=== PATIENT | female | born 1955 | race Caucasian/White ===

== ENCOUNTER → 2018-03-26 11:09 | Outpatient (CLI) | payer OTHER, SELFPAY ==
[2018-03-26 11:30] LABS: Add Manual Diff / Slide Review NO; Basophils Percent Auto 1.3 % (0-2); Eosinophils Percent Auto 2.9 % (2-4); Hematocrit 42.9 % (36-46); Hemoglobin 14.7 g/dL (12.0-16.0); Lymphocytes Percent Auto 31.2 % (25-40); Mean Corpuscular HGB Conc 34.2 % (30-36); Mean Corpuscular Hemoglobin 29.4 PG (26-34); Mean Corpuscular Volume 86.1 fL (80-100); Monocytes Percent Auto 7.7 % (3-14); Neutrophils Absolute Auto 3700 /uL (3000-5900); Neutrophils Percent Auto 56.9 % (50-75); Platelet Count 290 X10^3/uL (150-400); Red Blood Cell Count 4.99 X10^6/uL (4.0-5.2); White Blood Cell Count 6.4 X10^3/uL (4.5-11.0)
[2018-03-26 11:46] LABS: Hemoglobin A1C% w Est Avg Glu 5.1 % (4.0-6.0)
[2018-03-26 11:47] LABS: Alanine Aminotransferase 24 IU/L (9-52); Albumin 4.5 g/dL (3.5-5.0); Albumin Globulin Ratio 1.4 (1.0-2.8); Alkaline Phosphatase 73 U/L (38-126); Aspartate Aminotransferase 23 IU/L (14-36); BUN Creatinine Ratio 22.5 (6-22); Bilirubin Total 0.6 mg/dL (0.2-1.3); Blood Urea Nitrogen 18 mg/dL (7-17); C-Reactive Protein Quant 0.7 mg/dL (<1.0); Calcium 9.4 mg/dL (8.4-10.2); Carbon Dioxide 31 mmol/L (22-32); Chloride 102 mmol/L (98-107); Cholesterol 205 mg/dL (140-199); Estimated Glomerular Filt Rate > 60.0 mL/min (>60); Globulin 3.2 g/dL (1.7-4.1); Glucose 91 mg/dL (80-110); HDL Cholesterol 49 mg/dL (40-60); HEMOLYSIS < 15 (0-50); LDL Cholesterol Calculated 138 mg/dL (<100); Potassium 4.7 mmol/L (3.4-5.1); Sodium 142 mmol/L (137-145); Total Protein 7.7 g/dL (6.3-8.2); Triglycerides 89 mg/dL (35-150)
[2018-03-26 12:18] LABS: Ferritin 50.2 ng/mL (11.1-264)
[2018-03-26 12:30] LABS: Iron 125 ug/dL (37-170)
[2018-03-26 12:47] LABS: Free T4, Direct Thyroxine 1.35 ng/dL (0.78-2.19)
[2018-03-26 13:01] LABS: Thyroid Stimulating Hormone 0.87 uIU/mL (0.47-4.68)
[2018-03-26 14:57] LABS: Vitamin D 25 Hydroxy (D3) 42.1 ng/mL (30.0-100.0)
== END ==
PROVIDERS: Family Provider Family Medicine; PCP Family Medicine; Visit Provider Naturopath
DX: K21.9 Gastro-esophageal reflux disease without esophagitis (principal); R53.83 Other fatigue; E55.9 Vitamin D deficiency, unspecified
CPT/HCPCS: 36415; 80053; 80061; 82306; 82728; 83036; 83540; 84439; 84443; 84481; 85025; 86140

== ENCOUNTER → 2018-10-05 09:39 | Outpatient (CLI) | payer OTHER, SELFPAY ==
[2018-10-05 11:07] LABS: Add Manual Diff / Slide Review NO; Basophils Absolute Auto 100 /uL (0-100); Eosinophils Absolute Auto 100 /uL (0-450); Eosinophils Percent Auto 1.9 % (2-4); Hematocrit 43.6 % (36-46); Hemoglobin 14.6 g/dL (12.0-16.0); Lymphocytes Absolute Auto 1700 /uL (1100-4500); Lymphocytes Percent Auto 29.3 % (25-40); Mean Corpuscular HGB Conc 33.4 % (30-36); Mean Corpuscular Hemoglobin 29.4 PG (26-34); Mean Corpuscular Volume 87.9 fL (80-100); Monocytes Absolute Auto 400 /uL (0-900); Monocytes Percent Auto 7.6 % (3-14); Neutrophils Absolute Auto 3500 /uL (1500-7000); Neutrophils Percent Auto 60.2 % (50-75); Platelet Count 319 X10^3/uL (150-400); Red Blood Cell Count 4.96 X10^6/uL (4.0-5.2); Red Cell Distribution Width 13.5 % (11.6-14.8); White Blood Cell Count 5.9 X10^3/uL (4.5-11.0)
[2018-10-05 11:30] LABS: Alanine Aminotransferase 23 IU/L (9-52); Albumin 4.6 g/dL (3.5-5.0); Albumin Globulin Ratio 1.5 (1.0-2.8); Alkaline Phosphatase 87 U/L (38-126); Aspartate Aminotransferase 28 IU/L (14-36); BUN Creatinine Ratio 18.8 (6-22); Bilirubin Total 0.4 mg/dL (0.2-1.3); Blood Urea Nitrogen 15 mg/dL (7-17); Calcium 9.5 mg/dL (8.4-10.2); Carbon Dioxide 28 mmol/L (22-32); Chloride 101 mmol/L (98-107); Cholesterol 234 mg/dL (140-199); Estimated Glomerular Filt Rate > 60.0 mL/min (>60); Glucose 85 mg/dL (80-110); HDL Cholesterol 56 mg/dL (40-60); HEMOLYSIS < 15 (0-50); LDL Cholesterol Calculated 157 mg/dL (<100); Potassium 4.8 mmol/L (3.4-5.1); Sodium 140 mmol/L (137-145); Total Protein 7.6 g/dL (6.3-8.2); Triglycerides 106 mg/dL (35-150)
[2018-10-05 11:47] LABS: Vitamin D 25 Hydroxy (D3) 44.4 ng/mL (30.0-100.0)
[2018-10-05 12:01] LABS: Thyroid Stimulating Hormone 1.64 uIU/mL (0.47-4.68)
== END ==
PROVIDERS: PCP Family Medicine; Visit Provider Internal Medicine
DX: E03.9 Hypothyroidism, unspecified (principal); F32.5 Major depressive disorder, single episode, in full remission; E55.9 Vitamin D deficiency, unspecified; Z00.00 Encounter for general adult medical examination without abnormal findings
CPT/HCPCS: 36415; 80053; 80061; 82306; 84443; 85025

== ENCOUNTER → 2018-10-15 15:20 | Outpatient (CLI) | payer OTHER, SELFPAY ==
--- NOTE | 2018-10-15 | DI.RAD.S_ITS ---
PROCEDURE: XR CHEST 2V INDICATIONS: COUGH TECHNIQUE: 2 views of the chest were acquired. COMPARISON: [facility], , CHEST 2 VIEW, 04/28/2017, 10:31. FINDINGS: Surgical changes and devices: None. Lungs and pleura: Lungs are clear. No pleural effusions or pneumothorax. Mediastinum: Mediastinal contours are normal. Heart size is normal. Bones and chest wall: No suspicious bony abnormalities. Soft tissues appear unremarkable. IMPRESSION: No acute disease Dictated by: Yared Johnson M.D. on 10/15/2018 at 16:35 Approved by: Yared Johnson M.D. on 10/15/2018 at 16:35
== END ==
PROVIDERS: PCP Internal Medicine; Visit Provider Internal Medicine
DX: R05 Cough (principal)
CPT/HCPCS: 71046

== ENCOUNTER → 2019-03-03 10:54 | Outpatient (CLI) | payer MEDICARE, OTHER, SELFPAY ==
--- NOTE | 2019-03-03 | DI.CT.S_ITS ---
PROCEDURE: CT SOFT TISSUE NECK W CON INDICATIONS: DYSTONIA, HYPOXIA, NECK MASS TECHNIQUE: After the administration of intravenous contrast, 3.0 mm axial sections acquired from the sella to the aortic arch. Additional oblique axial 3.0 mm sections acquired through the pharynx. 3 mm thick coronal and sagittal reformats were generated. For radiation dose reduction, the following was used: automated exposure control. COMPARISON: None. FINDINGS: Image quality: Excellent. Lymph nodes: No enlarged lymph nodes seen throughout the neck. Vessels: Visualized vasculature appears patent. Neck spaces: The oropharynx, nasopharynx, and pharynx demonstrate no mucosal lesions. The vocal cords, false vocal cords, pyriform sinuses, epiglottis, vallecula, and tongue base all appear normal. Extramucosal spaces appear unremarkable. Glands: The parotid and submandibular glands appear normal. Thyroid gland unremarkable. Miscellaneous: Visualized brain and orbits appear normal. Lung apices appear clear. Superficial soft tissues appear normal. Bones: No suspicious bony lesions. Visualized sinuses and mastoids appear unremarkable. IMPRESSION: No discrete mass identified. No lymphadenopathy seen. Dictated by: Yared Johnson M.D. on 03/03/2019 at 16:45 Approved by: Yared Johnson M.D. on 03/03/2019 at 16:50
--- NOTE | 2019-03-03 | DI.CT.S_ITS ---
PROCEDURE: CT CHEST W CON INDICATIONS: DYSONEA,HYPOXIA,NECK MASS TECHNIQUE: After the administration of intravenous contrast, 5 mm thick sections acquired from the pulmonary apices to the posterior costophrenic angles. 1 mm axial lung, 5 mm thick coronal and sagittal reformats and 7 mm axial MIP were acquired. For radiation dose reduction, the following was used: automated exposure control, adjustment of mA and/or kV according to patient size. COMPARISON: [facility], CT, CT SOFT TISSUE NECK W CON, 03/03/2019, 14:22. FINDINGS: Image quality: Excellent. Lungs and pleura: No acute consolidation. No pleural effusions or pneumothorax. Central and peripheral airways are patent and normal in caliber. Mediastinum: Heart size is normal. No pericardial effusion. No mediastinal or hilar adenopathy by size criteria. Thoracic aorta and central pulmonary arteries are normal in size. Esophagus is normal in caliber. Possible trace hiatal hernia. Bones and chest wall: No suspicious bony lesions. No vertebral body compression fractures. No axillary or supraclavicular adenopathy by size criteria. Incidental cholelithiasis. IMPRESSION: Negative examination. No acute process. No lymphadenopathy identified. Incidental cholelithiasis. Dictated by: Yared Johnson M.D. on 03/03/2019 at 16:33 Approved by: Yared Johnson M.D. on 03/03/2019 at 16:40
[2019-03-03 11:33] LABS: Add Manual Diff / Slide Review NO; Basophils Absolute Auto 100 /uL (0-100); Basophils Percent Auto 1.3 % (0-2); Eosinophils Absolute Auto 200 /uL (0-450); Eosinophils Percent Auto 4.2 % (2-4); Hematocrit 41.7 % (36-46); Hemoglobin 14.5 g/dL (12.0-16.0); Lymphocytes Absolute Auto 2000 /uL (1100-4500); Lymphocytes Percent Auto 37.1 % (25-40); Mean Corpuscular HGB Conc 34.8 % (30-36); Mean Corpuscular Hemoglobin 29.7 PG (26-34); Mean Corpuscular Volume 85.2 fL (80-100); Monocytes Absolute Auto 400 /uL (0-900); Neutrophils Absolute Auto 2800 /uL (1500-7000); Neutrophils Percent Auto 50.4 % (50-75); Platelet Count 315 X10^3/uL (150-400); Red Blood Cell Count 4.89 X10^6/uL (4.0-5.2); Red Cell Distribution Width 13.3 % (11.6-14.8); White Blood Cell Count 5.5 X10^3/uL (4.5-11.0)
[2019-03-03 11:53] LABS: B Type Natriuretic Peptide < 100 (<100)
[2019-03-03 11:56] LABS: Alanine Aminotransferase 17 IU/L (9-52); Albumin 4.4 g/dL (3.5-5.0); Albumin Globulin Ratio 1.3 (1.0-2.8); Alkaline Phosphatase 91 U/L (38-126); Aspartate Aminotransferase 31 IU/L (14-36); Bilirubin Total 0.9 mg/dL (0.2-1.3); Blood Urea Nitrogen 16 mg/dL (7-17); Calcium 9.6 mg/dL (8.4-10.2); Carbon Dioxide 28 mmol/L (22-32); Chloride 101 mmol/L (98-107); Estimated Glomerular Filt Rate > 60.0 mL/min (>60); Globulin 3.3 g/dL (1.7-4.1); Glucose 98 mg/dL (80-110); HEMOLYSIS < 15 (0-50); Potassium 4.6 mmol/L (3.4-5.1); Sodium 141 mmol/L (137-145); Total Protein 7.7 g/dL (6.3-8.2)
[2019-03-03 12:24] LABS: TSH w/ Reflex to FT4 1.47 uIU/mL (0.47-4.68)
== END ==
PROVIDERS: PCP Internal Medicine; Visit Provider Internal Medicine
DX: R06.00 Dyspnea, unspecified (principal); R09.02 Hypoxemia; R22.1 Localized swelling, mass and lump, neck; R53.82 Chronic fatigue, unspecified; E03.9 Hypothyroidism, unspecified; K80.20 Calculus of gallbladder without cholecystitis without obstruction
CPT/HCPCS: 36415; 70491; 71260; 80053; 83880; 84443; 85025

== ENCOUNTER → 2019-03-11 10:47 | Outpatient (CLI) | payer MEDICARE, OTHER, SELFPAY ==
--- NOTE | 2019-03-21 11:14 | PM.PFT.1 ---
Pulmonary Function Test Referral & Results Date Patient Seen: 03/11/19 Requesting provider: Antonia Warren Results: The spirometry demonstrates an FVC of 2.96 L which is 83% of predicted. The FEV1 was measured at 2.36 L which is 86% of predicted. The FEV1/FVC ratio was 80 which is 103% of predicted. Following the administration of bronchodilator there was no appreciable change. Lung volumes show an SVC of 2.86 L which is 87% of predicted. The diffusing capacity was measured at 19.82 which is 70% of predicted. The maximum voluntary ventilation was normal Interpretation: This study demonstrates mild obstructive lung disease without evidence of benefit following bronchodilator administration
== END ==
PROVIDERS: PCP Internal Medicine; Visit Provider Internal Medicine
DX: R09.02 Hypoxemia (principal)
CPT/HCPCS: 94060; 94726; 94729

== ENCOUNTER → 2019-04-13 06:51 | Outpatient (CLI) | payer MEDICARE, OTHER, SELFPAY ==
--- NOTE | 2019-04-13 | DI.ECHO.S_ITS ---
[place] [facility]---------+ [facility] +---------+ : : [address] [address] : : : : [id number] : : : : Phone: [phone] Echocardiogram Report + + :Name: SD MAS Study Date: 04/13/2019 Height: 67 in : :[facility] Exam Location: IS Weight: 213 lb : : Gender: Female BSA: 2.1 m2 : :: 1955 Age: 64 yrs BP: 132/82 mmHg: :Reason For Study: Orthopnea : : Performed By: Brielle Page : :Referring: KODAK MADRIGAL L : + + Interpretation Summary The ejection fraction is estimated to be 60-65%. There is no significant valvular heart disease. Procedure: A two-dimensional transthoracic echocardiogram with color flow and Doppler was performed. The study quality was technically adequate. There is no prior echocardiogram noted for this patient. The patient was in normal sinus rhythm during the exam. Left Ventricle: The left ventricle is normal in size, wall thickness, and systolic function without any focal wall motion abnormalities. The ejection fraction is estimated to be 60-65%. Left ventricular wall motion is normal. Right Ventricle: The right ventricle is normal in size and function. Atria: Both atria are normal in size. There is no Doppler evidence for an interatrial shunt. Mitral Valve: The mitral valve is normal in structure and function. There is no mitral regurgitation. Aortic Valve: The aortic valve is grossly normal. The aortic valve opens well. No aortic regurgitation is present. Tricuspid Valve: The tricuspid valve is normal in structure and function. There is a trace or physiologic amount of tricuspid regurgitation. The right ventricular systolic pressure is estimated to be at least 18 mmHg based on an estimated right atrial pressure of 3 mm Hg. Pulmonic Valve: The pulmonic valve is not well seen, but is grossly normal. There is a trace or physiologic amount of pulmonic regurgitation. Great Vessels: The aortic root is normal size. The ascending aorta is at the upper limits of normal in size. The pulmonary artery is not well visualized, but is probably normal size. The IVC is of normal diameter and collapses greater than 50% with a sniff. This suggests a low right atrial pressure of 3 mm Hg. Pericardium/ Pleura There is no pericardial effusion. There is no pleural effusion. MMode/2D Measurements & Calculations LVIDd: 4.8 cm LVOT diam: 2.0 cm LVIDs: 3.3 cm Ao root diam: 3.1 cm FS: 31.6 % asc Aorta Diam: 3.4 cm EPSS: 0.11 cm IVSd: 0.79 cm LVPWd: 0.83 cm LV babin. diameter/BSA (cm/m^2): 2.3 LV sys. diameter/BSA (cm/m^2): 1.6 LA A2 area: 15.6 cm2 RA long axis: 5.4 cm LA A4 area: 19.7 cm2 RA area: 16.9 cm2 LA length (vol): 4.3 cm RA vol: 45.0 ml LA vol: 60.7 ml RA : 21.7 ml/m2 LA vol index: 29.2 ml/m2 IVC diam: 1.8 cm RVD1 (basal): 3.7 cm Doppler Measurements & Calculations Ao V2 max: 115.5 cm/sec LVOT Max Preston: 85.1 cm/sec Ao V2 mean: 84.2 cm/sec LV V1 max P.9 mmHg Ao max P.3 mmHg LV V1 VTI: 19.6 cm Ao mean P.0 mmHg RACHEL(I,D): 2.2 cm2 Ao V2 VTI: 27.1 cm RACHEL(V,D): 2.2 cm2 sev ratio: 0.72 RACHEL indexed to BSA (cm^2/m^2): 1.1 MV E max preston: 60.2 cm/sec TR max preston: 190.4 cm/sec MV A max preston: 76.7 cm/sec TR max P.5 mmHg MV E/A: 0.78 PA V2 max: 66.3 cm/sec Med Peak E' Preston: 5.8 cm/sec PA V2 mean: 45.3 cm/sec E/E' med: 10.4 PA mean P.90 mmHg Lat Peak E' Preston: 8.3 cm/sec PA Accel Time: 0.13 sec E/E' lat: 7.3 E/e' average: 8.8 MV P1/2t: 67.3 msec MV P1/2t max preston: 60.2 cm/sec SV(LVOT): 59.8 ml MVA(P1/2t): 3.3 cm2 Reading Physician:11:22 AM
== END ==
PROVIDERS: PCP Internal Medicine; Visit Provider Internal Medicine
DX: R06.01 Orthopnea (principal)
CPT/HCPCS: 93306

== ENCOUNTER → 2020-01-31 11:16 | Outpatient (CLI) | payer MEDICARE, OTHER, SELFPAY ==
[2020-01-31 13:11] LABS: Add Manual Diff / Slide Review NO; Basophils Absolute Auto 100 /uL (0-100); Basophils Percent Auto 1.5 % (0-2); Eosinophils Absolute Auto 200 /uL (0-450); Eosinophils Percent Auto 3.8 % (2-4); Hematocrit 38.9 % (36-46); Hemoglobin 13.3 g/dL (12.0-16.0); Lymphocytes Absolute Auto 1900 /uL (1100-4500); Lymphocytes Percent Auto 33.2 % (25-40); Mean Corpuscular HGB Conc 34.2 % (30-36); Mean Corpuscular Hemoglobin 29.8 PG (26-34); Mean Corpuscular Volume 87.1 fL (80-100); Monocytes Absolute Auto 400 /uL (0-900); Monocytes Percent Auto 6.6 % (3-14); Neutrophils Absolute Auto 3100 /uL (1500-7000); Neutrophils Percent Auto 54.9 % (50-75); Platelet Count 282 X10^3/uL (150-400); Red Blood Cell Count 4.47 X10^6/uL (4.0-5.2); White Blood Cell Count 5.7 X10^3/uL (4.5-11.0)
[2020-01-31 13:28] LABS: Alanine Aminotransferase 17 IU/L (<35); Albumin 4.2 g/dL (3.5-5.0); Albumin Globulin Ratio 1.4 (1.0-2.8); Alkaline Phosphatase 102 U/L (38-126); Aspartate Aminotransferase 27 IU/L (14-36); BUN Creatinine Ratio 26.3 (6-22); Bilirubin Total 0.5 mg/dL (0.2-1.3); Blood Urea Nitrogen 20 mg/dL (7-17); Calcium 9.5 mg/dL (8.4-10.2); Carbon Dioxide 28 mmol/L (22-32); Chloride 106 mmol/L (98-107); Cholesterol 187 mg/dL (140-199); Estimated Glomerular Filt Rate > 60.0 mL/min (>60); Glucose 90 mg/dL (80-110); HDL Cholesterol 49 mg/dL (40-60); HEMOLYSIS < 15 (0-50); LDL Cholesterol Calculated 124 mg/dL (<100); Potassium 4.5 mmol/L (3.4-5.1); Sodium 141 mmol/L (137-145); Total Protein 7.2 g/dL (6.3-8.2); Triglycerides 71 mg/dL (35-150)
[2020-01-31 14:00] LABS: Ferritin 63 ng/mL (11-264)
[2020-01-31 14:10] LABS: TSH w/ Reflex to FT4 0.41 uIU/mL (0.47-4.68)
[2020-01-31 15:03] LABS: Free T4, Direct Thyroxine 1.18 ng/dL (0.78-2.19)
[2020-01-31 15:56] LABS: Vitamin D 25 Hydroxy (D3) 42.4 ng/mL (30.0-100.0)
== END ==
PROVIDERS: PCP Internal Medicine; Referring Provider Internal Medicine; Visit Provider Internal Medicine
DX: Z13.220 Encounter for screening for lipoid disorders (principal); F32.5 Major depressive disorder, single episode, in full remission; L71.0 Perioral dermatitis; L65.9 Nonscarring hair loss, unspecified; E03.9 Hypothyroidism, unspecified; E55.9 Vitamin D deficiency, unspecified
CPT/HCPCS: 36415; 80053; 80061; 82306; 82728; 84439; 84443; 85025

== ENCOUNTER → 2020-08-23 11:11 | Outpatient (CLI) | payer MEDICARE, OTHER, SELFPAY ==
--- NOTE | 2020-08-23 | DI.RAD.S_ITS ---
PROCEDURE: XR LUMBAR SPINE 2-3V INDICATIONS: Low Back Pain TECHNIQUE: 3 views of the lumbar spine were acquired. COMPARISON: None. FINDINGS: Bones: 5 [id number] vertebrae are present. There is normal bony alignment. No vertebral body compression fractures. No suspicious bony lesions. Soft tissues: Overlying bowel gas pattern is normal. No suspicious soft tissue calcifications. IMPRESSION: Minimal degenerative disc height reduction noted at L2-L3 and L3-L4 and no subluxation is seen. No compression fracture found. Dictated by: Fito Villa M.D. on 08/23/2020 at 12:23 Approved by: Fito Villa M.D. on 08/23/2020 at 12:23
[2020-08-23 13:25] LABS: Alanine Aminotransferase 17 IU/L (<35); Albumin 4.5 g/dL (3.5-5.0); Albumin Globulin Ratio 1.5 (1.0-2.8); Alkaline Phosphatase 89 U/L (38-126); Aspartate Aminotransferase 26 IU/L (14-36); BUN Creatinine Ratio 17.2 (6-22); Bilirubin Total 0.6 mg/dL (0.2-1.3); Blood Urea Nitrogen 15 mg/dL (7-17); Calcium 9.9 mg/dL (8.4-10.2); Carbon Dioxide 27 mmol/L (22-32); Chloride 103 mmol/L (98-107); Cholesterol 216 mg/dL (140-199); Estimated Glomerular Filt Rate > 60.0 mL/min (>60); Globulin 3.1 g/dL (1.7-4.1); Glucose 86 mg/dL (80-110); HDL Cholesterol 51 mg/dL (40-60); HEMOLYSIS < 15 (0-50); LDL Cholesterol Calculated 144 mg/dL (<100); Potassium 4.3 mmol/L (3.4-5.1); Sodium 139 mmol/L (137-145); Total Protein 7.6 g/dL (6.3-8.2); Triglycerides 106 mg/dL (35-150)
== END ==
PROVIDERS: PCP Internal Medicine; Referring Provider Internal Medicine; Visit Provider Internal Medicine
DX: M54.5 Low back pain (principal); E78.2 Mixed hyperlipidemia; E03.9 Hypothyroidism, unspecified; F32.5 Major depressive disorder, single episode, in full remission
CPT/HCPCS: 36415; 72100; 80053; 80061; 84443

== ENCOUNTER → 2022-06-19 10:48 | Outpatient (CLI) | payer MEDICARE, OTHER, SELFPAY | PROVIDERS: PCP Internal Medicine; Referring Provider Internal Medicine; Visit Provider Internal Medicine | DX: Z78.0 Asymptomatic menopausal state (principal); Z13.820 Encounter for screening for osteoporosis; Z90.710 Acquired absence of both cervix and uterus | CPT/HCPCS: 77080 ==

== ENCOUNTER → 2022-12-03 15:44 | Outpatient (CLI) | payer MEDICARE, OTHER, SELFPAY ==
--- NOTE | 2022-12-03 15:49 | DI.RAD.S_ITS ---
PROCEDURE: XR CHEST 2V INDICATIONS: NEW COUGH AFTER POSSIBLE ASPIRATION TECHNIQUE: 2 views of the chest were acquired. COMPARISON: [facility], CR, XR CHEST 2V, 10/15/2018, 15:31. FINDINGS: Surgical changes and devices: None. Lungs and pleura: Lungs appear clear. No pleural effusions or pneumothorax. Mediastinum: Mediastinal contours are unchanged. Heart size is normal. Bones and chest wall: No suspicious bony abnormalities. Soft tissues appear unremarkable. IMPRESSION: No acute cardiopulmonary abnormality. Dictated by: Jose Guerrero M.D. on 12/03/2022 at 17:51 Approved by: Jose Guerrero M.D. on 12/03/2022 at 17:52
[2022-12-03 17:33] LABS: Add Manual Diff / Slide Review NO; Basophils Absolute Auto 100 /uL (0-100); Basophils Percent Auto 1.1 % (0-2); Eosinophils Absolute Auto 200 /uL (0-450); Eosinophils Percent Auto 2.5 % (2-4); Hematocrit 40.9 % (36-46); Hemoglobin 14.3 g/dL (12.0-16.0); Lymphocytes Absolute Auto 2400 /uL (1100-4500); Lymphocytes Percent Auto 31.2 % (25-40); Mean Corpuscular Hemoglobin 29.3 PG (26-34); Mean Corpuscular Volume 83.7 fL (80-100); Monocytes Absolute Auto 500 /uL (0-900); Monocytes Percent Auto 5.9 % (3-14); Neutrophils Absolute Auto 4600 /uL (1500-7000); Neutrophils Percent Auto 59.3 % (50-75); Platelet Count 301 X10^3/uL (150-400); Red Blood Cell Count 4.89 X10^6/uL (4.0-5.2); Red Cell Distribution Width 13.5 % (11.6-14.8); White Blood Cell Count 7.8 X10^3/uL (4.5-11.0)
== END ==
PROVIDERS: PCP Physician Assistant; Referring Provider Internal Medicine Gastroenterology; Visit Provider Internal Medicine Gastroenterology
DX: K22.2 Esophageal obstruction (principal)
CPT/HCPCS: 36415; 71046; 85025

== ENCOUNTER 2023-12-29 14:26 | Emergency (ER) | payer MEDICARE, OTHER, SELFPAY ==
[2023-12-29] VITALS (7 sets, daily range): BP systolic 129–149; BP diastolic 72–88; PULSE 61–77; RESP 20; TEMP 36.3; O2SAT 91–97; BMI 33.4
--- NOTE | 2023-12-29 14:40 | DI.RAD.S_ITS ---
PROCEDURE: XR CHEST 1V INDICATIONS: chest pain TECHNIQUE: One view of the chest was acquired. COMPARISON: [facility], CR, XR CHEST 2V, 12/03/2022, 15:44. [facility], CR, XR CHEST 2V, 10/15/2018, 15:31. FINDINGS: Surgical changes and devices: None. Lungs and pleura: Lungs are clear. No pleural effusions or pneumothorax. Mediastinum: Mediastinal contours appear normal. Heart size is normal. Bones and chest wall: No suspicious bony lesions. Overlying soft tissues appear unremarkable. IMPRESSION: No acute cardiopulmonary abnormality is seen. Dictated by: Josafat Farah M.D. on 12/29/2023 at 15:26 Approved by: Josafat Farah M.D. on 12/29/2023 at 15:26
[2023-12-29 15:38] LABS: Add Manual Diff / Slide Review NO; Basophils Absolute Auto 0 /uL (0-100); Basophils Percent Auto 0.3 % (0-2); Eosinophils Absolute Auto 200 /uL (0-450); Hematocrit 40.6 % (36-46); Hemoglobin 13.8 g/dL (12.0-16.0); Lymphocytes Absolute Auto 2300 /uL (1100-4500); Lymphocytes Percent Auto 30.7 % (25-40); Mean Corpuscular HGB Conc 33.9 % (30-36); Mean Corpuscular Hemoglobin 29.1 PG (26-34); Mean Corpuscular Volume 85.7 fL (80-100); Monocytes Absolute Auto 600 /uL (0-900); Monocytes Percent Auto 7.4 % (3-14); Neutrophils Absolute Auto 4500 /uL (1500-7000); Neutrophils Percent Auto 59.6 % (50-75); Platelet Count 311 X10^3/uL (150-400); Red Blood Cell Count 4.74 X10^6/uL (4.0-5.2); Red Cell Distribution Width 13.8 % (11.6-14.8); White Blood Cell Count 7.5 X10^3/uL (4.5-11.0)
[2023-12-29 15:54] LABS: Prothrombin Time 11.9 SECONDS (9.4-12.5)
[2023-12-29 15:57] LABS: PTT Partial Thromboplastin Tim 33 SECONDS (25.1-36.5)
[2023-12-29 15:58] LABS: Alanine Aminotransferase 19 IU/L (<35); Albumin 4.5 g/dL (3.5-5.0); Albumin Globulin Ratio 1.3 (1.0-2.8); Alkaline Phosphatase 81 U/L (38-126); Aspartate Aminotransferase 30 IU/L (14-36); BUN Creatinine Ratio 14.3 (6-22); Bilirubin Total 0.6 mg/dL (0.2-1.3); Blood Urea Nitrogen 17 mg/dL (7-17); Calcium 8.9 mg/dL (8.4-10.2); Carbon Dioxide 28 mmol/L (22-32); Chloride 107 mmol/L (98-107); Creatine Kinase 38 U/L (30-135); Estimated Glomerular Filt Rate 49 mL/min (>60); Globulin 3.5 g/dL (1.7-4.1); Glucose 107 mg/dL (80-110); HEMOLYSIS < 15 (0-50); Lipase 65 U/L (23-300); Potassium 3.8 mmol/L (3.4-5.1); Sodium 140 mmol/L (137-145)
[2023-12-29 16:10] LABS: NT-proBNP (BNP-Adult 18+) 68 pg/mL (<125); Troponin I < 0.012 ng/mL (0.01-0.034)
--- NOTE | 2023-12-29 18:57 | ED_ITS ---
HPI - General Adult General Chief complaint: Dizziness Stated complaint: low BP, possible medication reaction or heat Time Seen by Provider: 12/29/23 18:03 Source: patient Mode of arrival: Ambulatory History of Present Illness HPI narrative: 68-year-old female with history of hypertension, dyslipidemia, hypothyroidism who presents with complaint of dizziness and low blood pressure. Patient states she has had longstanding chronic dizziness which she describes as going in between vertigo, feeling off balance and like she might pass out for a very long time. She states she was having symptoms earlier today checked her blood pressure which she does check most days and was 100 systolic throughout the morning and occasionally into the early afternoon. She states normal tends to be about 116 systolic. No syncope. She denies any numbness tingling or weakness, no difficulty with movement of her extremities. No vision changes that are new does state she has had longstanding blurry vision. No difficulty with speech or facial droop described. She denies chest pain or shortness of breath, no fevers, no cold cough or congestion that is new. She describes it chronic cough that is mild nonproductive but has been present for a long time. Denies any abdominal back or flank pain. Denies any diarrhea. States she has had some mild constipation. Denies any dysuria urgency or frequency. Denies any new swelling in extremities. She is ambulated to the bathroom several times today. She states that she does have air conditioning in her home and has been eating and drinking normally as it has been very hot outside lately. She states she was started on lisinopril and a statin in June she has not felt well since she started those. But no new medication changes since then. Home medications include lisinopril, statin, liothyronine, levothyroxine, pantoprazole, citalopram, trazodone and Tylenol PRN. She has allergies to penicillin and Pivoxil. Denies any tobacco, no alcohol, no recreational drugs. Flores Duong is her primary care provider. Related Data Home Medications Medication Instructions Recorded Confirmed pantoprazole 40 mg tablet,delayed 40 mg PO DAILY 04/12/19 04/12/19 release Previous Rx's Medication Instructions Recorded citalopram 20 mg tablet (Celexa) 20 mg PO DAILY #90 tabs 04/06/18 levothyroxine 75 mcg capsule 75 mcg PO DAILY #90 caps 04/06/18 trazodone 50 mg tablet 50 mg PO BEDTIME #90 tabs 04/06/18 liothyronine 5 mcg tablet 5 mcg PO DAILY #90 tabs 09/28/18 Allergies Allergy/AdvReac Type Severity Reaction Status Date / Time egg Allergy Severe D/T Verified 04/12/19 13:57 ALLERGY TESTING gluten Allergy Intermediate JOINTS AND Verified 04/12/19 13:57 STOMACH DISCOMFORT, SWELLING Penicillins Allergy Unknown Verified 04/12/19 13:57 soy Allergy Unknown Verified 04/12/19 13:57 lactose AdvReac Mild SINUS Verified 04/12/19 13:57 CONGESTION whey AdvReac Mild SINUS Verified 04/12/19 13:57 CONGESTION Review of Systems Review of Systems ROS Unobtainable: All systems reviewed & are unremarkable except as noted in HPI and below Patient History Medical History (Updated 12/29/23 @ 19:15 by Kasie Humphries DO) Depression Hemorrhoids Closed head injury Hypothyroidism Chronic back pain Surgical History Hx of epicondylectomy (1986) Hx of tonsillectomy (1968) Hx of hysterectomy (2004) Family History Father Cancer Mother Alzheimer's disease Social History Smoking Status: Former smoker Smoking Status: Former smoker alcohol intake frequency: a few times a month Substance Use Type: does not use Exam Narrative Exam Narrative: GENERAL: Alert and oriented x three, female in no acute distress HEENT: Head normocephalic, atraumatic, EOMI, pupils reactive, face symmetric, moist mucous membranes NECK: Supple, full range of motion CARDIOVASCULAR: Regular rate and rhythm without murmurs, rubs or gallops. No edema. No JVD. RESPIRATORY: Breath sounds equal bilaterally, no wheezes rales or rhonchi. ABDOMEN: Soft, nontender. Normoactive bowel sounds all 4 quadrants. No guarding or rebound, rigidity, no mass : No CVA tenderness EXTREMITIES: Normal range of motion, no clubbing or edema. Neurovascularly intact NEUROLOGICAL: Cranial nerves II through XII grossly intact. Moving all extremities SKIN: Warm, dry, no petechiae, no rashes or lesions. Initial Vital Signs Initial Vital Signs: Vital Signs Temperature 97.4 F L 12/29/23 14:35 Pulse Rate 72 12/29/23 14:35 Respiratory Rate 20 12/29/23 14:35 Blood Pressure 129/74 12/29/23 14:35 Pulse Oximetry 97 12/29/23 14:35 Oxygen Delivery Method Room Air 12/29/23 14:35 Course Orders Ordered: ED Orders 12/29/23 14:40 XR chest 1V Stat EKG-12 Lead Stat 12/29/23 15:23 Complete Blood Count AUTO DIFF Stat Comprehensive Metabolic Panel Stat Lipase Stat Magnesium Stat NT-proBNP (BNP-Adult 18+) Stat PTT Partial Thromboplastin Kartik Stat Prothrombin Time INR Stat Troponin & CK Cardiac Panel Stat Vital Signs Vital signs: Vital Signs - 8 hr 12/29/23 14:35 12/29/23 18:23 12/29/23 18:24 Temperature 97.4 F L Pulse Rate 72 77 Respiratory Rate 20 Blood Pressure 129/74 Pulse Oximetry 97 91 94 Oxygen Delivery Method Room Air 12/29/23 18:24 12/29/23 18:30 12/29/23 18:31 Temperature Pulse Rate 65 64 Respiratory Rate Blood Pressure 132/73 Pulse Oximetry 96 96 Oxygen Delivery Method Room Air 12/29/23 18:31 Temperature Pulse Rate Respiratory Rate Blood Pressure 149/88 H Pulse Oximetry Oxygen Delivery Method Medical Decision Making Lab Data 12/29/23 15:23 12/29/23 15:23 Labs: Lab Results 12/29/23 Range/Units 15:23 WBC 7.5 (4.5-11.0) X10^3/uL RBC 4.74 (4.0-5.2) X10^6/uL Hgb 13.8 (12.0-16.0) g/dL Hct 40.6 (36-46) % MCV 85.7 (80-100) fL MCH 29.1 (26-34) PG MCHC 33.9 (30-36) % RDW 13.8 (11.6-14.8) % Plt Count 311 (150-400) X10^3/uL Neut % (Auto) 59.6 (50-75) % Lymph % (Auto) 30.7 (25-40) % [place] % (Auto) 7.4 (3-14) % Eos % (Auto) 2.0 (2-4) % Baso % (Auto) 0.3 (0-2) % Neut # (Auto) 4500 (1901-0362) /uL Lymph # (Auto) 2300 (0562-6973) /uL [place] # (Auto) 600 (0-900) /uL Eos # (Auto) 200 (0-450) /uL Baso # (Auto) 0 (0-100) /uL PT 11.9 (9.4-12.5) SECONDS INR 1.0 (0.9-1.3) APTT 33 (25.1-36.5) SECONDS Sodium 140 (137-145) mmol/L Potassium 3.8 (3.4-5.1) mmol/L Chloride 107 (98-107) mmol/L Carbon Dioxide 28 (22-32) mmol/L BUN 17 (7-17) mg/dL Creatinine 1.19 H (0.52-1.04) mg/dL Estimated GFR 49 L (>60) mL/min BUN/Creatinine Ratio 14.3 (6-22) Glucose 107 (80-110) mg/dL Calcium 8.9 (8.4-10.2) mg/dL Magnesium 2.0 (1.6-2.3) mg/dL Total Bilirubin 0.6 (0.2-1.3) mg/dL AST 30 (14-36) IU/L ALT 19 (<35) IU/L Alkaline Phosphatase 81 (38-126) U/L Total Creatine Kinase 38 (30-135) U/L Troponin I < 0.012 (0.01-0.034) ng/mL NT-Pro-B Natriuret Pep 68 (<125) pg/mL Total Protein 8.0 (6.3-8.2) g/dL Albumin 4.5 (3.5-5.0) g/dL Globulin 3.5 (1.7-4.1) g/dL Albumin/Globulin Ratio 1.3 (1.0-2.8) Lipase 65 (23-300) U/L Imaging Data Chest x-ray: Radiologist's Impression: [address] [address] XRay Report Signed Patient: Cecelia Estrella MR#: [id number] : 1955 Acct:[id number] Age/Sex: 68 / F Date of Service: 12/29/23 Loc: ED Accession Number: [id number] Procedure: XR chest 1V Ordering Provider: Dario Suarez MD PROCEDURE: XR CHEST 1V INDICATIONS: chest pain TECHNIQUE: One view of the chest was acquired. COMPARISON: [facility], CR, XR CHEST 2V, 12/03/2022, 15:44. [facility], CR, XR CHEST 2V, 10/15/2018, 15:31. FINDINGS: Surgical changes and devices: None. Lungs and pleura: Lungs are clear. No pleural effusions or pneumothorax. Mediastinum: Mediastinal contours appear normal. Heart size is normal. Bones and chest wall: No suspicious bony lesions. Overlying soft tissues appear unremarkable. IMPRESSION: No acute cardiopulmonary abnormality is seen. Dictated by: Josafat Farah M.D. on 12/29/2023 at 15:26 Approved by: Josafat Farah M.D. on 12/29/2023 at 15:26 ECG Data Attestation: I personally reviewed and interpreted this ECG as follows: Prior ECG tracings: available for review Interpretation: Sinus bradycardia rate of 58 TX 176 QRS 84 QTC 447, no acute ST elevation patient does have some T-wave inversion. Patient has prior from 03/21/2010 has some nonspecific change does have some T-wave inversion in 3 and lateral leads on the EKG. [facility] Narrative Medical decision making narrative: 68-year-old female who describes dizziness, she states has been longstanding but also noted low blood pressure today on checks and checked multiple times throughout the day. Here in the department have overall been appropriate. She states no new medications but states she has not felt well since she started her lisinopril about 6 months ago along with her statin. Patient's labs overall are appropriate, chest x-ray shows no acute change, EKG shows some T-wave inversion but has some of this on her prior from 2009. Patient does not have any chest pain or shortness of breath or other cardiac symptoms. She would like to return home. She has been ambulating in the department without issue. Labs show white count of 7.5 hemoglobin of 13.8, platelets of 331, coags are negative, sodium is 140 potassium 3.8 chloride 107 CO2 is 28 with a BUN of 17 creatinine is 1.19 has been 0.82 point 7 in the last 4 years. Glucose is 107 with otherwise negative LFTs, troponins less than 0.012 with a BNP of 68. Chest xray shows no acute change. EKG shows some printed flattened T-waves. Discharge Plan Departure Patient Disposition: Home Clinical Impression: Dizziness Instructions: DI for Dizziness-Nonvertigo Activity Restrictions/Additional Instructions: Follow up with your physician as needed. If you are having persistently low blood pressure, please hold your lisinopril. Please return for new or worsening symptoms, new chest pain or shortness of breath, passing out, nausea or vomiting, fevers, new swelling of your extremities or other new or concerning changes. Prescriptions: No Action citalopram [Celexa] 20 mg tablet 20 mg PO DAILY Qty: 90 3RF levothyroxine 75 mcg capsule 75 mcg PO DAILY Qty: 90 1RF trazodone 50 mg tablet 50 mg PO BEDTIME Qty: 90 3RF liothyronine 5 mcg tablet 5 mcg PO DAILY Qty: 90 0RF pantoprazole 40 mg tablet,delayed release (DR/EC) 40 mg PO DAILY Referrals: Flores Duong PA-C [Primary Care Provider] - Stand Alone Forms: Patient Portal/API
--- NOTE | 2023-12-29 19:11 | EKG_ITS ---
[address] [address] Test Date: 2023-12-29 Pat Name: Cecelia Estrella Department: Room: Gender: Female [employer] Operator: donis : 1955 Requested By: Order Number: [id number] Reading MD: George Kang MD Measurements Intervals Wilson Rate: 58 P: 24 LA: 176 QRS: 27 QRSD: 84 T: 11 QT: 456 QTc: 447 Interpretive Statements Sinus bradycardia T wave abnormality, consider anterior ischemia Electronically Signed On 12-30-2023 8:54:12 PDT by George Kang MD
== END 2023-12-29 19:18 | disposition home or self-care (01) ==
PROVIDERS: Emergency Medicine; Emergency Provider Emergency Medicine; PCP Physician Assistant
DX: R42 Dizziness and giddiness (principal); R07.9 Chest pain, unspecified; R00.1 Bradycardia, unspecified
CPT/HCPCS: 36415; 71045; 80053; 82550; 83690; 83735; 83880; 84484; 85025; 85610; 85730; 93005; 99283; 99284

== ENCOUNTER 2024-07-30 08:37 | Emergency (ER) | payer MEDICARE, OTHER, SELFPAY ==
[2024-07-30] VITALS (7 sets, daily range): BP systolic 117–133; BP diastolic 75–80; PULSE 74–87; RESP 16; TEMP 37.1; O2SAT 93–97; BMI 34.2
--- NOTE | 2024-07-30 | DI.RAD.S_ITS ---
PROCEDURE: XR KNEE RT 3V INDICATIONS: PAIN TECHNIQUE: 3 views of the knee were acquired. COMPARISON: None. FINDINGS: Bones: No fractures or dislocations. No suspicious bony lesions. Soft tissues: No joint effusion. No suspicious soft tissue calcifications. Small patellofemoral osteophytes. IMPRESSION: No acute bony abnormality or significant effusion. Slight patellofemoral osteoarthrosis. Dictated by: Dario Fam M.D. on 07/30/2024 at 9:01 Approved by: Dario Fam M.D. on 07/30/2024 at 9:01
--- NOTE | 2024-07-30 09:23 | DI.RAD.S_ITS ---
PROCEDURE: XR HIP W PEL IF DONE RT 2V INDICATIONS: fall, hip pain TECHNIQUE: 2 views of the hip were acquired. COMPARISON: None. FINDINGS: Bones: No fractures or dislocations. No suspicious bony lesions. The visualized pelvic ring appears intact. Soft tissues: No suspicious soft tissue calcifications or masses. IMPRESSION: No acute bony abnormality. Dictated by: Dario Fam M.D. on 07/30/2024 at 9:00 Approved by: Dario Fam M.D. on 07/30/2024 at 9:01
--- NOTE | 2024-07-30 09:40 | ED.LOWEXIN ---
HPI - Extremity Injury (Lower) General Chief Complaint: Extremity Injury, Lower Stated Complaint: Fall/Right Leg pain Time Seen by Provider: 07/30/24 09:21 Source: patient, RN notes reviewed and old records reviewed Mode of arrival: Family Vehicle Limitations: no limitations History of Present Illness HPI Narrative: 69-year-old female history of dyslipidemia, hypothyroidism, on an aspirin daily presents with complaint of right hip and knee pain. Patient states she tripped and fell last night. Fell forward thinks she hyperextended her leg or knee when she fell. She was not sure exactly how she landed. She was a little bit of hip pain but states that is pretty tolerable goes behind towards her buttock little bit. Her main complaint is her right knee particularly when standing and weight-bearing or trying to lift her knee to take a step. Patient denies any numbness or tingling. She has not appreciate any weakness. She does have some discomfort with plantar flexion dorsiflexion but no weakness. Patient was able to do leg lift. Patient denies any other injuries. Patient states is on statin, levothyroxine, trazodone and takes an aspirin 81 mg daily. No prior surgeries to that knee or lower extremity. Has multiple food allergies but reports allergy to penicillin. Former smoker, occasional alcohol, no recreational drugs. Flores Duong is her primary care physician. Related Data Home Medications Medication Instructions Recorded Confirmed pantoprazole 40 mg tablet,delayed 40 mg PO DAILY 04/12/19 04/12/19 release Previous Rx's Medication Instructions Recorded citalopram 20 mg tablet (Celexa) 20 mg PO DAILY #90 tabs 04/06/18 levothyroxine 75 mcg capsule 75 mcg PO DAILY #90 caps 04/06/18 trazodone 50 mg tablet 50 mg PO BEDTIME #90 tabs 04/06/18 liothyronine 5 mcg tablet 5 mcg PO DAILY #90 tabs 09/28/18 tramadol 50 mg tablet 50 mg PO Q6H PRN pain #14 tabs 07/30/24 Allergies Allergy/AdvReac Type Severity Reaction Status Date / Time egg Allergy Severe D/T Verified 04/12/19 13:57 ALLERGY TESTING gluten Allergy Intermediate JOINTS AND Verified 04/12/19 13:57 STOMACH DISCOMFORT, SWELLING Penicillins Allergy Unknown Verified 04/12/19 13:57 soy Allergy Unknown Verified 04/12/19 13:57 lactose AdvReac Mild SINUS Verified 04/12/19 13:57 CONGESTION whey AdvReac Mild SINUS Verified 04/12/19 13:57 CONGESTION Review of Systems Review of Systems ROS Unobtainable: All systems reviewed & are unremarkable except as noted in HPI and below Patient History Medical History (Updated 07/30/24 @ 11:01 by Kasie Humphries DO) Depression Hemorrhoids Closed head injury Hypothyroidism Chronic back pain Surgical History Hx of epicondylectomy (1986) Hx of tonsillectomy (1968) Hx of hysterectomy (2004) Family History Father Cancer Mother Alzheimer's disease Social History Smoking Status: Former smoker Smoking Status: Former smoker alcohol intake frequency: a few times a month Exam Narrative Exam Narrative: GENERAL: Alert and oriented x three, female in mild distress HEENT: Head normocephalic, atraumatic, EOMI, pupils reactive, face symmetric, moist mucous membranes NECK: Supple, full range of motion CARDIOVASCULAR: Regular rate and rhythm without murmurs, rubs or gallops. RESPIRATORY: Breath sounds equal bilaterally, no wheezes rales or rhonchi. ABDOMEN: Soft, nontender. Normoactive bowel sounds all 4 quadrants. No guarding or rebound, rigidity, no mass : No CVA tenderness EXTREMITIES: Normal range of motion, patient does have increased pain flexion of the knee. Patient does not have any bony tenderness over the right hip or femur, patient does have some tenderness over the right fibula tibial plateau although fairly mild. No patellar tenderness. No other bony tenderness to the lower extremity, ankle or foot. Patient has some mild swelling right compared to left. No ecchymosis, no warmth or erythema. No abrasions or lacerations noted. Negative joint laxity testing normal valgus and varus, patient does have increased pain with compression test. Neurovascularly intact. 2+ dorsalis pedis. NEUROLOGICAL: Cranial nerves II through XII grossly intact. Moving all extremities SKIN: Warm, dry, no petechiae, no rashes or lesions. Initial Vital Signs Initial Vital Signs: Vital Signs Pulse Rate 87 07/30/24 09:01 Blood Pressure 133/75 07/30/24 09:01 Pulse Oximetry 94 07/30/24 09:01 Course Orders Ordered: Discontinued Medications Hydrocodone Bitart/Acetaminophen (Hydrocodone/Acet 5/325 Tablet) 1 tab PO NOW ONE Stop: 07/30/24 09:59 Last Admin: 07/30/24 10:22 Dose: 1 tab Documented By: DAMON Vital Signs Vital signs: Vital Signs - 8 hr 07/30/24 11:20 07/30/24 11:22 07/30/24 11:22 Pulse Rate 79 78 Blood Pressure 120/80 Pulse Oximetry 95 94 Oxygen Delivery Method 07/30/24 11:30 Pulse Rate 78 Blood Pressure Pulse Oximetry 93 Oxygen Delivery Method Room Air MDM - Extremity Injury (Lower) MDM Narrative Medical decision making narrative: Patient had x-ray right hip right knee x-ray shows no acute bony abnormality or significant effusion slight patellofemoral osteoarthritis. 69-year-old female mechanical fall patient describes hyperextension, majority of pain is with compression test on examination no joint laxity. No ecchymosis but patient does have swelling. Has pain with weight-bearing and bending of the knee to lift her leg. Patient suspect may have internal derangement was placed knee immobilizer crutches with weight-bearing as tolerated and short course of pain medication. Discussed return precautions all questions answered. Patient to follow up with primary care and/or orthopedic surgery for follow up. Patient received dose of oral pain medication here. Discussed findings with the patient she feels comfortable this plan. She states she has crutches at home that are size to her. Discussed return precautions all questions answered. Discharge Plan Departure Patient Disposition: Home Clinical Impression: Knee pain, right Instructions: DI for Knee Pain Activity Restrictions/Additional Instructions: Your imaging today does not show any fractures or breaks, you has a little bit of arthritic change to the knee or slight patellofemoral osteoarthritis but no significant effusion or bony abnormality. You may have injured the tendons, ligaments or structures inside the knee I would recommend follow up with primary care if symptoms are improving, if you are not having any improvement follow up with the orthopedic surgery maybe beneficial and contacts included below. You may weightbear as tolerated, use was crutches as needed. Can take acetaminophen and/or ibuprofen every 6 hours as needed for pain. If inadequate for pain you can take tramadol 1-2 tablets every 6 hours. This medication can make you sleepy do not drive, perform hazardous activities or make any major decisions while taking it. This medication will make you constipated please take a stool softener once to twice daily until stools are soft and regular. Prescription sent to [facility]. Splint Care: Keep splint clean and dry. Elevated affected body part to decrease swelling. OK to use ice pack on the affected body part. Use for 15-20 minutes each time, for 5-6x per day. If you develop worsening pain, numbness, tingling, discoloration of the affected body part, adjust the knee immobilizer, and either see your doctor for an urgent re-assessment, or return to the Emergency Department. Return to the Emergency Department for any new or worsening symptoms. Prescriptions: New tramadol 50 mg tablet 50 mg PO Q6H PRN (Reason: pain) Qty: 14 0RF No Action citalopram [Celexa] 20 mg tablet 20 mg PO DAILY Qty: 90 3RF levothyroxine 75 mcg capsule 75 mcg PO DAILY Qty: 90 1RF trazodone 50 mg tablet 50 mg PO BEDTIME Qty: 90 3RF liothyronine 5 mcg tablet 5 mcg PO DAILY Qty: 90 0RF pantoprazole 40 mg tablet,delayed release (DR/EC) 40 mg PO DAILY Referrals: Sonya Recinos MD [Physician] - Flores Duong PA-C [Primary Care Provider] - Stand Alone Forms: Patient Portal/API/Survey
[2024-07-30] MEDS: HYDROCODONE/ACET 5/325 TABLET 1 TAB PO (10:22)
== END 2024-07-30 11:55 | disposition home or self-care (01) ==
PROVIDERS: Emergency Provider Emergency Medicine; PCP Physician Assistant
DX: M25.561 Pain in right knee (principal); M25.551 Pain in right hip; W01.0XXA Fall on same level from slipping, tripping and stumbling without subsequent striking against object, initial encounter; Z79.82 Long term (current) use of aspirin; Z88.0 Allergy status to penicillin
CPT/HCPCS: 73502; 73562; 99283; 99284

== ENCOUNTER → 2024-10-11 15:35 | Outpatient (CLI) | payer MEDICARE, OTHER, SELFPAY ==
--- NOTE | 2024-10-11 15:38 | DI.MRI.S_ITS ---
PROCEDURE: MR KNEE RT WO CON INDICATIONS: acute pain of Right knee TECHNIQUE: Noncontrast sagittal PD fast spin echo and T2 fast spin echo with fat saturation, sagittal 3-D FLASH with fat saturation; coronal T1 spin echo and PD fast spin echo with fat saturation, and axial PD fast spin echo with fat saturation through the knee. COMPARISON: None. FINDINGS: Image quality: Excellent. Menisci: Oblique tear involving posterior horn of medial meniscus extending to inferior articulating surface. No evidence of lateral meniscal tear. Cruciate ligaments: The anterior cruciate ligament appears mildly thickened with intrasubstance T2 hyperintense signal near its tibial insertion. The posterior cruciate ligament is intact. Medial structures: The medial collateral ligament appears mildly thickened. Visualized portions of the pes anserinus tendons appear normal. No abnormal bursal fluid. Lateral structures: The lateral collateral ligament, long and short heads of the biceps femoris tendon appear intact. The popliteus tendon appears normal. Iliotibial band appears normal. Anterior structures: The quadriceps and patellar tendons appear intact. Patellar alignment is normal. Bones and cartilage: There is marrow edema involving posterior and lateral aspect of proximal tibia extending to lateral tibial plateau. There is focal full-thickness cartilage defect involving weight-bearing portion of lateral tibial plateau with underlying osteochondral injury measures 3 mm in size and mild surrounding edema. No other area of abnormal marrow signal. No acute fracture or dislocation. 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 Focal full-thickness cartilage defect with underlying small osteochondral injury is also seen in posterior medial aspect of patella near apex. Joint space: There is small knee joint fluid. No Alvarado's cyst. Normal appearing synovial plicae are incidentally noted. IMPRESSION: 1. Oblique tear involving posterior horn of medial meniscus extending to inferior articulating surface. No evidence of lateral meniscal tear. 2. Low-grade sprain/intrasubstance partial-thickness tear involving ACL near its tibial insertion. No ACL rupture. The PCL is intact. 3. Low-grade MCL sprain. 4. [id number] tricompartmental osteoarthritis and chondromalacia with focal areas of full-thickness cartilage defects and underlying osteochondral injuries involving lateral femoral tibial compartment and patellofemoral compartment as above. Likely contusion involving posterior and lateral aspect of proximal tibia extending to lateral tibial plateau. 5. Small joint effusion, no loose bodies. Dictated by: Saturnino Tracey M.D. on 10/12/2024 at 13:59 Approved by: Saturnino Tracey M.D. on 10/12/2024 at 14:18
--- NOTE | 2024-10-11 15:38 | DI.MRI.S_ITS ---
PROCEDURE: MR KNEE LT WO CON INDICATIONS: acute pain of left knee TECHNIQUE: Noncontrast sagittal PD fast spin echo and T2 fast spin echo with fat saturation, sagittal 3-D FLASH with fat saturation; coronal T1 spin echo and PD fast spin echo with fat saturation, and axial PD fast spin echo with fat saturation through the knee. COMPARISON: [facility], MR, MR KNEE RT WO CON, 10/11/2024, 15:56. FINDINGS: Image quality: Excellent. Menisci: Subtle oblique tear involving posterior horn of medial meniscus is seen extending to inferior articulating surface. The lateral meniscus is intact. Cruciate ligaments: The anterior and posterior cruciate ligaments appear intact. Medial structures: The medial collateral ligament appears mildly thickened with surrounding soft tissue edema. Visualized portions of the pes anserinus tendons appear normal. No abnormal bursal fluid. Lateral structures: The lateral collateral ligament, long and short heads of the biceps femoris tendon appear intact. The popliteus tendon appears normal. Iliotibial band appears normal. Anterior structures: The quadriceps and patellar tendons appear intact. Patellar alignment is normal. Bones and cartilage: [id number] tricompartmental osteoarthritis and chondromalacia is seen more notably in lateral femoral tibial compartment and lateral portion of patellofemoral compartment. No marrow edema. No fracture or dislocation. Joint space: There is small knee joint fluid. There is a tiny Alvarado's cyst. Normal appearing synovial plicae are incidentally noted. IMPRESSION: 1. Subtle oblique tear involving posterior horn of medial meniscus extending to inferior articulating surface. No lateral meniscal tear. 2. The cruciate ligaments are intact. Low-grade MCL sprain. 3. [id number] tricompartmental osteoarthritis and chondromalacia more notably in lateral femoral tibial compartment and lateral portion of patellofemoral compartment. No fracture or dislocation. 3. Small joint effusion, no loose bodies. Tiny Alvarado's cyst. Dictated by: Saturnino Tracey M.D. on 10/12/2024 at 14:19 Approved by: Saturnino Tracey M.D. on 10/12/2024 at 14:23
== END ==
PROVIDERS: PCP Physician Assistant; Referring Provider Student in an Organized Health Care Education/Training Program; Visit Provider Student in an Organized Health Care Education/Training Program
DX: S83.241A Other tear of medial meniscus, current injury, right knee, initial encounter (principal); S83.242A Other tear of medial meniscus, current injury, left knee, initial encounter; S83.511A Sprain of anterior cruciate ligament of right knee, initial encounter; S83.411A Sprain of medial collateral ligament of right knee, initial encounter; S83.412A Sprain of medial collateral ligament of left knee, initial encounter; M17.0 Bilateral primary osteoarthritis of knee; M22.42 Chondromalacia patellae, left knee; M22.41 Chondromalacia patellae, right knee; M25.462 Effusion, left knee; M25.461 Effusion, right knee; M25.562 Pain in left knee; M25.561 Pain in right knee
CPT/HCPCS: 73721

== ENCOUNTER → 2024-10-17 08:11 | Outpatient (CLI) | payer MEDICARE, OTHER, SELFPAY ==
--- NOTE | 2024-10-17 08:13 | DI.US.S_ITS ---
PROCEDURE: US CAROTID DOPPLER BI INDICATIONS: HYPERLIPIDEMIA TECHNIQUE: Color and pulse Doppler interrogation was performed of both carotid systems, with image documentation and velocity measurements. COMPARISON: None. FINDINGS: Stenosis calculations are based on SRU (Society of Radiologists in Ultrasound) criteria. Right side: Brachial blood pressure: 128/82 mm Hg. Common carotid artery peak systolic velocity: 50 cm/sec. Internal carotid artery peak systolic velocity: 68 cm/sec. Internal carotid artery end diastolic velocity: 26 cm/sec. External carotid artery peak systolic velocity: 55 cm/sec. ICA/CCA peak systolic ratio: 1.37 . Guzman scale imaging description: Mild atherosclerotic plaque Percent internal carotid artery stenosis: Less than 50 percent . Vertebral artery: Flow direction is antegrade. Left side: Brachial blood pressure: 122/82 mm Hg. Common carotid artery peak systolic velocity: 64 cm/sec. Internal carotid artery peak systolic velocity: 62 cm/sec. Internal carotid artery end diastolic velocity: 24 cm/sec. External carotid artery peak systolic velocity: 52 cm/sec. ICA/CCA peak systolic ratio: 0.97 . Guzman scale imaging description: Minimal atherosclerotic plaque. Percent internal carotid artery stenosis: Less than 50 percent . Vertebral artery: Flow direction is antegrade. IMPRESSION: 1. In the right carotid artery, there is less than 50 percent stenosis based on peak systolic velocity criteria. 2. In the left carotid artery, there is less than 50 percent stenosis based on peak systolic velocity criteria. 3. Antegrade vertebral arteries. Dictated by: Hugh Parham M.D. on 10/17/2024 at 13:21 Approved by: Hugh Parham M.D. on 10/17/2024 at 13:22
== END ==
LOC: US 08:12
PROVIDERS: PCP Physician Assistant; Referring Provider Physician Assistant; Visit Provider Physician Assistant
DX: E78.5 Hyperlipidemia, unspecified (principal); R93.89 Abnormal findings on diagnostic imaging of other specified body structures; I65.23 Occlusion and stenosis of bilateral carotid arteries
CPT/HCPCS: 93880

== ENCOUNTER → 2024-12-07 11:57 | Outpatient (CLI) | payer MEDICARE, OTHER, SELFPAY ==
--- NOTE | 2024-12-07 11:58 | DI.US.S_ITS ---
PROCEDURE: US ABDOMEN LIMITED INDICATIONS: HISTORY OF GALLSTONES TECHNIQUE: Real-time scanning was performed of the abdominal and retroperitoneal organs, with image documentation. Forty-six images and 5 cine series COMPARISON: No prior ultrasound for comparison. FINDINGS: Cholelithiasis with echogenic shadowing mobile gallstone near the gallbladder neck measuring up to 1.4 cm. No ultrasound evidence of gallbladder wall thickening or pericholecystic fluid. Common bile duct 4 mm within normal limits. Liver is mildly increased in echogenicity diffusely commonly mild hepatic steatosis or intrinsic hepatic disease. Liver measures approximately 13 cm in CC dimension of the right lobe within normal limits in size. 1.0 cm diameter heterogeneous anechoic round structure left lobe of the liver commonly hepatic cyst too small to characterize. Pancreas not well-visualized due to overlying bowel gas. IMPRESSION: Cholelithiasis without ultrasound evidence of cholecystitis. Mild hepatic steatosis. Dictated by: Marc Benavidez M.D. on 12/08/2024 at 12:39 Approved by: Marc Benavidez M.D. on 12/08/2024 at 12:43
== END ==
LOC: US 11:58
PROVIDERS: PCP Physician Assistant; Referring Provider Internal Medicine Gastroenterology; Visit Provider Internal Medicine Gastroenterology
DX: K80.20 Calculus of gallbladder without cholecystitis without obstruction (principal); K76.0 Fatty (change of) liver, not elsewhere classified; K21.9 Gastro-esophageal reflux disease without esophagitis; E66.811 Obesity, class 1; Z87.19 Personal history of other diseases of the digestive system
CPT/HCPCS: 76705